=== PATIENT | male | born 2000 | race Caucasian/White ===

== ENCOUNTER 2019-03-07 17:12 | Emergency (ER) | payer BC, SELFPAY ==
[2019-03-07 17:15] VITALS: BP 142/78; PULSE 71; RESP 16; TEMP 36.6; O2SAT 97
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
[2019-03-07] MEDS: Acetaminophen 500 MG TAB 1000 MG PO (17:54)
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
[2019-03-07 19:56] VITALS: BP 148/84; PULSE 84; RESP 17; O2SAT 99
[2019-03-07] MEDS: Clindamycin 150 MG CAP 450 MG PO (20:08)
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
[2019-03-07 21:00] VITALS: BP 132/78; PULSE 76; RESP 18; TEMP 36.8; O2SAT 99
== END 2019-03-07 20:55 | disposition home or self-care (01) ==
PROVIDERS: Emergency Provider Emergency Medicine
DX: S02.40CA Maxillary fracture, right side, initial encounter for closed fracture (principal); S02.2XXA Fracture of nasal bones, initial encounter for closed fracture; S06.0X0A Concussion without loss of consciousness, initial encounter; Y04.0XXA Assault by unarmed brawl or fight, initial encounter
CPT/HCPCS: 99284; 70450; 70486